=== PATIENT | female | born 1945 | race Two or more races ===

== ENCOUNTER 2022-05-15 17:47 | Emergency (ER) | payer OTHER ==
[~2022-05-15] VITALS: Ht 165.1 cm; Wt 70.3 kg
== END 2022-05-15 20:32 | disposition home or self-care (01) ==
LOC: ER 17:47
DX: S09.90XA Unspecified injury of head, initial encounter (principal); W22.8XXA Striking against or struck by other objects, initial encounter; Y93.9 Activity, unspecified; Y92.9 Unspecified place or not applicable